=== PATIENT | female | born 1955 | race Caucasian/White ===

== ENCOUNTER → 2022-05-12 10:34 | Outpatient (CLI) | payer MEDICARE, SELFPAY ==
--- NOTE | ~2022-05-12 | US_ITS ---
Thyroid ultrasound. Clinical History: Hyperparathyroidism Findings: Real-time sonography of the thyroid gland was performed. The right lobe measures 1.8 x 0.7 x 0.9 cm. The left lobe measures 1.7 x 0.5 x 0.4 cm. The isthmus is 3 mm in AP diameter. Thyroid par enchyma is heterogeneous, without discrete nodule. Impression: Very small, heterogeneous thyroid gland. Correlate with thyroid function tests for hypothyroidism.. Reviewed, dictated and finalized at [facility]. Impression: Very small, heterogeneous thyroid gland. Correlate with thyroid function tests for hypothyroidism..
== END ==
PROVIDERS: PCP Nurse Practitioner; Visit Provider Nurse Practitioner
DX: E21.3 Hyperparathyroidism, unspecified (principal)
CPT/HCPCS: 76536